=== PATIENT | male | born 1955 | race Caucasian/White ===

== ENCOUNTER → 2023-08-14 14:41 | Outpatient (BNVA) | payer MEDICARE, BC, SELFPAY | PROVIDERS: Visit Provider Dermatology | DX: L82.0 Inflamed seborrheic keratosis (principal); L82.1 Other seborrheic keratosis; L81.4 Other melanin hyperpigmentation; L73.8 Other specified follicular disorders | CPT/HCPCS: 17110; 99203 ==

== ENCOUNTER → 2024-08-11 10:46 | Outpatient (BNVA) | payer MEDICARE, BC, SELFPAY | PROVIDERS: Visit Provider Dermatology | DX: L21.8 Other seborrheic dermatitis (principal); L73.8 Other specified follicular disorders; L82.1 Other seborrheic keratosis; L81.4 Other melanin hyperpigmentation; L57.0 Actinic keratosis | CPT/HCPCS: 17000; 99214 ==